=== PATIENT | male | born 1975 | race Caucasian/White ===

== ENCOUNTER → 2018-10-30 | Outpatient (CLI) | payer BC ==
--- NOTE | 2018-10-30 23:05 | CONS ---
CONSULTATION REASON FOR CONSULTATION: This is a consultation note for sleep fragmentation and frequent nocturnal arousals. 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 He is coming in having difficulties with waking up in the middle of the night. He goes to bed somewhere between 11 o'clock and midnight and wakes up at 3 o'clock, 4 o'clock, 5 o'clock and 6 o'clock and he ultimately gets out of bed around 6:00 in the morning. He does snore, occasionally grinds his teeth and he seems to be quite restless at bedtime. He does not have any bed partner and we are not sure if he is having any apneas. During the day he feels quite sleepy and fatigued and his Slaughter score is at 10. No recent weight gain or weight loss. He sleeps on his side. He takes a nap to get himself refreshed especially on weekends. He has not fallen asleep while driving his car. However on a few occasions he has dosed off briefly without being involved in accidents. No substance abuse. No head trauma. No history of any psychiatric disorder. He has been involved in atrial fibrillation on two separate occasions. He has undergone cardioversion successfully on 2 separate occasions and current rhythm is sinus. PAST MEDICAL HISTORY: Paroxysmal atrial fibrillation current rhythm is sinus. SURGICAL HISTORY: Cardioversion x2 and hernia repair. ALLERGIES: TO PENICILLIN. OUTPATIENT MEDICATIONS INCLUDE: Metoprolol and aspirin. SOCIAL HISTORY: Nonsmoker. No history of alcohol. No history of IV drugs. FAMILY HISTORY: Family history negative for sleep apnea. REVIEW OF SYSTEMS: A 14-point review of system was done. Positive findings were all mentioned above in the history of present illness. Of significance is the absence of any psychiatric disorder. No anxiety or panic attacks. No chest pain. No active palpitation. No shortness of breath. No heartburn. No depression. No anxiety. No nausea or vomiting. No altered mentation. PHYSICAL EXAMINATION: BP is 117/70, pulse 66, respirations 16, temperature 98.0. Saturation 96% on room air. Height is 6'2", weight 254. Slaughter score 10. Neck size 16.5 inches, BMI 32.1. GENERAL APPEARANCE: Calm, comfortable., Head is atraumatic, normocephalic. NECK: Supple. There is no JVD. No goiter or neck masses. Mallampati class III. LUNGS: Clear to auscultation. HEART: Sounds regular rate and rhythm. Normal S1, S2. No S3, S4. No murmurs. ABDOMEN: Soft, nontender. No organomegaly. EXTREMITIES: No edema. No cyanosis or clubbing. NEUROLOGIC: Alert and oriented x3. No focal neurological deficits. PSYCHIATRIC: Negative for anxiety or depression. Skin is negative for any wounds or ulceration. IMPRESSION: 1. Sleep fragmentation, consider obstructive sleep apnea especially with history of snoring and some crowding of the posterior pharynx. The patient also has hypersomnia Slaughter score of 10. 2. Paroxysmal atrial fibrillation, current rhythm is sinus. PLAN: 1. Proceed with screening polysomnogram. 2. Weight loss. 3. Implement good sleep hygiene measures. 4. We will follow. We will make further recommendations based on results of sleep study. MMODL / IJN: [id number] /
== END | disposition home or self-care (01) ==
LOC: SLEEP 16:18
PROVIDERS: ATTEND Internal Medicine Critical Care Medicine
DX: G47.10 Hypersomnia, unspecified (principal); R06.83 Snoring; I48.0 Paroxysmal atrial fibrillation; Z79.82 Long term (current) use of aspirin; Z79.899 Other long term (current) drug therapy; Z88.0 Allergy status to penicillin
CPT/HCPCS: 99211

== ENCOUNTER → 2019-05-21 | Outpatient (CLI) | payer BC ==
--- NOTE | 2019-05-21 17:57 | PN ---
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 The patient initially presented to me with difficulties with waking up in the middle of the night and some increased degree of tiredness and sleepiness during the day. His [place] score was 10 and he also had paroxysmal atrial fibrillation. The patient underwent a sleep study and was found to have mild obstructive sleep apnea with an AHI of 10.3. The patient's disease was worse in the supine body position. He did encounter some sleep fragmentation. Based on that, I gave him an APAP machine with a minimum pressure of 5 and maximum pressure of 16. I noted that over the past 6 months the patient has not been absolutely compliant with the treatment. Over the past 30 days, for example, the patient utilized his CPAP machine 17/30 days and the patient has achieved more than 4 hours only 4/30 days. His average CPAP use is around 2.9 hours whenever in use. His average pressure is around 7.2 cm of water. His leak 2 L and the patient's AHI is down to 0.8 while on treatment. As such, the treatment is successful as long as the patient keeps the machine on and uses the treatment. He tells me that whenever he is able to use the machine more than 4 hours he feels better and he feels much more refreshed and alert during the day. His weight has been stable. Despite his poor compliancy, he seems to be committed and he wants to make this successful, as the patient has seen benefit to CPAP therapy. REVIEW OF SYSTEMS: Fourteen-point review of systems was done. Positive findings are all mentioned above in the history of present illness. PHYSICAL EXAMINATION: VITAL SIGNS: BP is 125/70, pulse 65, respirations 14, temperature 98.4. [place] score is 11. Saturation 95% on room air. Weight is 261.8. GENERAL APPEARANCE: Calm, comfortable. HEAD: Atraumatic, normocephalic. NECK: Supple. No JVD. No goiter or neck masses. LUNGS: Clear to auscultation. HEART: Heart sounds are regular rate and rhythm. Normal S1, S2. No S3, S4. No murmurs. ABDOMEN: Soft, nontender. No organomegaly. EXTREMITIES: No edema. No cyanosis or clubbing. IMPRESSION: 1. Obstructive sleep apnea, mild in severity, symptomatic. 2. Paroxysmal atrial fibrillation, currently in normal sinus rhythm. PLAN: I checked the compliance data. The numbers are poor, yet the patient states that he is benefitting and he wants to make this a successful treatment. He seems to be more committed to the treatment on today's evaluation. I offered him the AirFit N30i under- the-nose nose mask. He is currently utilizing a DreamWear. I requested that he become more compliant and increase the average number of hours of use more than 4 hours. He needs to wear his CPAP every night to make the treatment more successful. He made a commitment and he will see me back in a year's time in followup. Will continue to follow. MMODL / IJN: [id number] /
== END | disposition home or self-care (01) ==
LOC: SLEEP 15:27
PROVIDERS: ATTEND Internal Medicine Critical Care Medicine
DX: G47.33 Obstructive sleep apnea (adult) (pediatric) (principal); I48.0 Paroxysmal atrial fibrillation

== ENCOUNTER 2020-11-09 15:05 | Emergency (ER) | payer BC ==
[2020-11-09 15:40] VITALS: RESP 17; TEMP 98.7
[2020-11-09] MEDS ORDERED: LIDOCAINE 1% INJ 10MG/ML (20 ML MDV) SQ ONE (16:50)
--- NOTE | 2020-11-09 17:41 | XR ---
EXAMINATION TYPE: XR hand complete LT DATE OF EXAM: 11/09/2020 CLINICAL HISTORY: Pain TECHNIQUE: Frontal, lateral and oblique images of the left hand are obtained. COMPARISON: None. FINDINGS: There is no acute fracture/dislocation evident in the left hand. The joint spaces in the l eft hand appear within normal limits. The overlying soft tissue appears unremarkable. IMPRESSION: There is no acute fracture or dislocation in the left hand.
[2020-11-09 18:01] VITALS: BP 138/76; PULSE 72
[2020-11-09] MEDS ORDERED: DIPH,PERTUS(ACELL)TETVAC-LF 0.5 ML VIAL IM ONE (18:02)
--- NOTE | 2020-11-09 18:30 | ED ---
General Adult HPI - General Chief complaint: Wound/Laceration Stated complaint: L Hand Lac Time Seen by Provider: 11/09/20 16:45 Source: patient Mode of arrival: ambulatory Limitations: no limitations - History of Present Illness Initial comments: 44-year-old male presents to the emergency room for a chief complaint of laceration to the left hand. Patient was working in the driveway when his hand hit the mere of a cardiac cut his knuckle. Tetanus not up to date. Patient denies any difficulty moving his finger. Patient is concerned of infection g iven his hands are very dirty at the time from working.Patient has no other complaints at this time including shortness of breath, chest pain, abdominal pain, nausea or vomiting, headache, or visual changes. - Related Data Previous Rx's Medication Instructions Recorded Cephalexin [Keflex] 500 mg PO BID 7 Days #14 cap 11/09/20 Allergies Allergy/AdvReac Type Severity Reaction Status Date / Time Penicillins Allergy Unknown Verified 11/09/20 15:40 Childhood Review of Systems ROS Statement: Those systems with pertinent positive or pertinent negative responses have been documented in the HPI. ROS Other: All systems not noted in ROS Statement are negative. Past Medical History Past Medical History: Atrial Fibrillation History of Any Multi-Drug Resistant Organisms: None Reported Past Surgical History: Hernia Repair Past Psychological History: No Psychological Hx Reported Smoking Status: Never smoker Past Alcohol Use History: Rare Past Drug Use History: None Reported General Exam - General Exam Comments Initial Comments: Left hand: Patient has a 3 cm flap-like laceration noted to the dorsal second metacarpal head of the left hand. No foreign bodies. No tendon injury. Pat ient is full range of motion including flexion and extension at the MCP, PIP, and DIP joint of the left second digit. Capillary refill less than 2 seconds in all digits of the left hand, radial pulse 2+. Limitations: no limitations General appearance: alert, in no apparent distress Head exam: Present: atraumatic, normocephalic, normal inspection Eye exam: Present: normal appearance, PERRL, EOMI. Absent: scleral icterus ENT exam: Present: normal exam, mucous membranes moist Neck exam: Present: normal inspection, full ROM. Absent: tenderness Respiratory exam: Present: normal lung sounds bilaterally. Absent: respiratory distress, wheezes Cardiovascular Exam: Present: regular rate, normal rhythm, normal heart sounds Course Vital Signs 11/09/20 11/09/20 11/09/20 15:36 18:00 18:35 Temperature 98.7 F 98.7 F Pulse Rate 65 72 72 Respiratory 17 17 17 Rate Blood Pressure 136/76 138/76 138/76 O2 Sat by Pulse 99 100 100 Oximetry Procedures - Laceration Laceration #1 Consent Obtained: verbal consent Indication: laceration Site: upper extremity Size (cm): 3 Description: linear Depth: simple, single layer Anesthetic Used: lidocaine 1% Anesthesia Technique: local infiltration Amount (mls): 4 Pre-repair: wound explored, irrigated extensively, deep structures intact Type of Sutures: nylon Size of Sutures: 4-0 Number of Sutures: 6 Technique: simple, interrupted Patient Tolerated Procedure: well, no complications Medical Decision Making - Medical Decision Making Vitals are stable. Wound was cleaned thoroughly with saline pressure irrigation. It was anesthetized and investigated for any foreign bodies or deep structure injury which was not evident. Wound was closed using 6 simple interrupted sutures. I did discuss care parameters including trying to limit range of motion of the hand for the next few days and doing antibiotic to prevent infection given it is a hand laceration. Patient will return for any worsening symptoms and will return in 7-10 days for suture removal. Disposition Clinical Impression: Laceration Disposition: HOME SELF-CARE Condition: Good Instructions (If sedation given, give patient instructions): Care For Your Stitches (ED), Laceration (ED) Additional Instructions: Please keep the area clean with gentle soap and water. Apply antibiotic ointment twice daily. Keep covered for the next few days and try to limit range of motion. Follow-up with your doctor. Return for any worsening symptoms. Return in 7-10 days for suture removal. Prescriptions: Cephalexin [Keflex] 500 mg PO BID 7 Days #14 cap Is patient prescribed a controlled substance at d/c from ED?: No Referrals: Prasad Amezcua MD [REFERRING] - 1-2 days Time of Disposition: 18:28
== END 2020-11-09 18:40 | disposition home or self-care (01) ==
LOC: EC 15:05
DX: S61.412A Laceration without foreign body of left hand, initial encounter (principal); Z88.0 Allergy status to penicillin; W22.8XXA Striking against or struck by other objects, initial encounter; Y92.093 Driveway of other non-institutional residence as the place of occurrence of the external cause; Y99.0 Civilian activity done for income or pay
CPT/HCPCS: 99283; 90471; 73130; 90715; 12002; J2001; 12042